=== PATIENT | female | born 1965 ===

== ENCOUNTER 2018-11-08 13:42 | Outpatient (CLI) | payer OTHER | END 2018-11-08 13:43 | disposition home or self-care (01) | LOC: C.MAMMO 13:42 | DX: Z12.31 Encounter for screening mammogram for malignant neoplasm of breast (principal) ==

== ENCOUNTER 2019-01-20 07:41 | Emergency (ER) | payer OTHER ==
[2019-01-20 07:59] VITALS: BMI 25.4
[2019-01-20 08:03] VITALS: TEMP 98.5
[2019-01-20] MEDS ORDERED: Lidocaine 5% Patch TD STA (08:53)
[2019-01-20] MEDS ORDERED: Lidocaine 5% Patch TD ONE (09:38)
--- NOTE | 2019-01-20 09:52 | C.PDOC ---
History Of Present Illness 54 y/o female presents to the ED complaining of right lower back pain radiating to the right buttock and side of leg since 2 days ago. Pain is worse with movement. She denies any numbness, tingling, saddle anesthesia, or incontinence of bowel or bladder. Patient took 2 motrin yesterday with some relief. No associated abd pain, nausea, vomiting, hematuria, fever, or chills. 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 Time Seen by Provider: 01/20/19 08:28 Chief Complaint (Nursing): Back Pain History Per: Dye Tub Operator (#[id number]) History/Exam Limitations: no limitations Onset/Duration Of Symptoms: Days (x 2) Current Symptoms Are (Timing): Still Present Associated Symptoms: None Exacerbating Factor(s): Movement Past Medical History Reviewed: Historical Data, Nursing Documentation, Vital Signs Vital Signs: Last Vital Signs Temp 98.5 F 01/20/19 07:59 Pulse 89 01/20/19 07:59 Resp 17 01/20/19 07:59 BP 124/81 01/20/19 07:59 Pulse Ox 97 01/20/19 07:59 - Medical History PMH: Asthma, HTN, Hypercholesterolemia Family History: States: No Known Family Hx - Social History Hx Alcohol Use: No Hx Substance Use: No - Immunization History Hx Tetanus Toxoid Vaccination: No Hx Influenza Vaccination: Yes (06/2018) Hx Pneumococcal Vaccination: No (Not sure) Review Of Systems Constitutional: Negative for: Fever, Chills Gastrointestinal: Negative for: Nausea, Vomiting, Abdominal Pain Genitourinary: Negative for: Dysuria, Incontinence, Hematuria Musculoskeletal: Positive for: Back Pain, Leg Pain (right buttock/lateral leg) Skin: Negative for: Rash Neurological: Negative for: Weakness, Numbness, Incoordination Physical Exam - Physical Exam Appears: Non-toxic, No Acute Distress Skin: Warm, No Rash Head: Atraumatic, Normacephalic Eye(s): bilateral: PERRL, EOMI Neck: Normal ROM Chest: Symmetrical Cardiovascular: Rhythm Regular, No Murmur Gastrointestinal/Abdominal: Bowel Sounds (normoactive), Soft, No Tenderness, No Distention Back: No Vertebral Tenderness, Muscle Spasm (right paralumbar spasm, with tenderness to right sciatic notch) Extremity: Normal ROM (x 4), No Pedal Edema, No Calf Tenderness Pulses: Left Dorsalis Pedis: Normal, Right Dorsalis Pedis: Normal Neurological/Psych: Oriented x3, Normal Speech, Normal Cognition, Normal Motor, Normal Sensation ED Course And Treatment O2 Sat by Pulse Oximetry: 97 Pulse Ox Interpretation: Normal Medical Decision Making Medical Decision Making: Initial Plan: Patient given 975mg PO Tylenol, 30mg IM Toradol, and 1x Lidoderm patch. 1003 pt feels better, d/c home with naproxen and flexeril Disposition Counseled Patient/Family Regarding: Diagnosis, Need For Followup, Rx Given - Disposition Referrals: Margie Rousseau MD [Medical Doctor] - Disposition: HOME/ ROUTINE Disposition Time: 10:04 Condition: IMPROVED Additional Instructions: Retire el parche en 12 horas. Duncan naproxeno con la comida. Use un relajante muscular cada 8 horas si est en casa, o solo a la hora de acostarse si est trabajando. Te hace sooliento Seguimiento con el Dr. Rousseau en 1-2 floyd. Remove patch in 12 hours. Take naproxen with food. USe muscle relaxant every 8 hours if at home, or only at bedtime if working. Makes you drowsy. Follow up with Dr Rousseau in 1-2 days. MEDICATIONS SENT TO [facility] [place] Prescriptions: Acetaminophen [Tylenol 325mg tab] 650 mg PO Q6 #30 tab Cyclobenzaprine [Cyclobenzaprine HCl] 10 mg PO Q8 #9 tab Naproxen 500 mg PO BID #20 tab Instructions: Sciatica (DC), Muscle Spasms (DC) Forms: Gen Discharge Inst Mongolian, Group [facility] [employer] (Mongolian), Work Excuse Print Language: KOREAN - Clinical Impression Clinical Impression: Muscle spasm of back, Sciatica - PA / DIETITIAN CHIEF / Resident Statement MD/DO has reviewed & agrees with the documentation as recorded. - Scribe Statement The provider has reviewed the documentation as recorded by the Mónicaibstacia Turk All medical record entries made by the Scribe were at my direction and personally dictated by me. I have reviewed the chart and agree that the record accurately reflects my personal performance of the history, physical exam, medical decision making, and the department course for this patient. I have also personally directed, reviewed, and agree with the discharge instructions and disposition.
[2019-01-20 10:40] VITALS: BP 122/82; PULSE 82; RESP 19
[2019-01-21 08:52] VITALS: O2SAT 97
== END 2019-01-20 10:39 | disposition home or self-care (01) ==
LOC: C.ER 07:41
DX: M62.830 Muscle spasm of back (principal); M54.30 Sciatica, unspecified side; E78.00 Pure hypercholesterolemia, unspecified; I10 Essential (primary) hypertension
CPT/HCPCS: 96372; 99283; J1885